=== PATIENT | female | born 2000 | race Caucasian/White ===

== ENCOUNTER 2020-05-20 18:51 | Emergency (ER) | payer OTHER ==
[~2020-05-20] VITALS: Ht 162.6 cm; Wt 49.9 kg
[2020-05-20 19:05] VITALS: BP 127/82
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
[2020-05-20] MEDS ORDERED: Methocarbamol 500mg tab ORAL ONE (19:15)
[2020-05-20] MEDS ORDERED: Ketorolac 30mg Inj IM ONE (19:15)
--- NOTE | 2020-05-20 19:20 | NUR ---
ED Nurse Note: pt ambulated to xray with steady gait
--- NOTE | 2020-05-20 19:47 | NUR ---
ED Nurse Note: pt returned from xray, verbalized improvement of pain after medication administration
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
[2020-05-20] MEDS ORDERED: ROBAXIN-500MG ORAL (19:58)
[2020-05-20] MEDS ORDERED: IBUPROFEN600 M1 ORAL (19:58)
[2020-05-20 20:00] VITALS: BP 127/82
--- NOTE | 2020-05-20 20:00 | NUR ---
ER DISCHARGE NOTE: Patient is cleared to be discharged per ERMD, pt is aox4, on room air, with stable vital signs. pt was given dc , prescription and follow up instructions, pt was able to verbalize understanding, pt id band removed without complications. pt is able to ambulate with steady gait. pt took all belongings.
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
== END 2020-05-20 20:00 | disposition home or self-care (01) ==
LOC: EMR 19:29
DX: S63.502A Unspecified sprain of left wrist, initial encounter (principal); S16.1XXA Strain of muscle, fascia and tendon at neck level, initial encounter; V43.52XA Car driver injured in collision with other type car in traffic accident, initial encounter; Y92.411 Interstate highway as the place of occurrence of the external cause; Z85.850 Personal history of malignant neoplasm of thyroid
CPT/HCPCS: 72040; 73110; 96372; J1885; Z7502; 99283

== ENCOUNTER 2020-06-23 22:05 | Emergency (ER) | payer OTHER ==
[~2020-06-23] VITALS: Ht 162.6 cm; Wt 49.9 kg
[~2020-06-23 22:05] MED LIST: IBUPROFEN600 M1 ORAL; ROBAXIN-500MG ORAL
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
[2020-06-23] MEDS ORDERED: IBUPROFEN600 M1 ORAL (22:32)
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
[2020-06-23 22:41] VITALS: BP 116/82
--- NOTE | 2020-06-23 22:48 | NUR ---
PT DISCHGED WITH RX AND AFTERCARE INSTRUCTIONS AND F/U PMD AOX4 RESP EVEN SKIN WDI LT RADIAL PULSE STRONG
[2020-06-23 22:50] VITALS: BP 111/82
== END 2020-06-23 22:50 | disposition home or self-care (01) ==
LOC: EMR 22:30
DX: S63.502A Unspecified sprain of left wrist, initial encounter (principal); X58.XXXA Exposure to other specified factors, initial encounter; Z85.850 Personal history of malignant neoplasm of thyroid
CPT/HCPCS: 99282